=== PATIENT | female | born 1955 | race Caucasian/White ===

== ENCOUNTER → 2016-09-24 | Outpatient (CLI) | payer MEDICARE, OTHER ==
--- NOTE | 2016-09-24 13:05 | RAD ---
Indication fractured ribs. Assess for potential pneumonia. The heart size and pulmonary vessels are normal. The lungs are clear of acute infiltrates. There is no pleural fluid. There is no pneumothorax. Breast implants are noted. (Frontal and lateral views of the chest were obtained. No prior imaging of the chest is available). There are probable background changes of emphysema and/or fibrosis IMPRESSION: No acute or focal process in the chest. Probable chronic changes as outlined above
--- NOTE | 2016-09-24 13:19 | RAD ---
INDICATION: Osteoporosis screening. COMPARISON: None. TECHNIQUE: Bone densitometry was performed through the lumbar spine and proximal femur. FINDINGS: Lumbar Spine: L1-4 BMD: 0.78 T-Score: -1.7 Femoral Neck Right: BMD: 0.68 T-Score: -2.7 IMPRESSION: 1. Lumbar spine falls within the osteopenic range. 2. Right femoral neck falls within the osteoporotic range.
--- NOTE | 2016-09-24 13:53 | RAD ---
EXAM: MAMMO [facility] SCREENING BILATERAL HISTORY: Routine Screening. COMPARISON: None available Standard mammographic views are obtained of the bilateral breasts. Additionally three-dimensional tomographic images obtained and implant displaced views. This study was interpreted with the benefit of Computerized Aided Detection (CAD). FINDINGS: The breast parenchyma shows scattered fibroglandular densities. Breast parenchyma level II. There is bilateral breast implants identified with calcification of the capsule. There is some irregularity of the right breast implant with some high density extracapsular material seen. IMPRESSION: No definite suspicious mass is identified. There are bilateral breast implants with calcified capsule as well as some high density material suspected within an extracapsular location on the right which raises the concern for implant leakage. BI-RADS CATEGORY: 2 BENIGN FINDING RECOMMENDED FOLLOW-UP: 12M 12 MONTH FOLLOW-UP PQRS compliance statement: Patient information was entered into a reminder system with a target due date for the next mammogram. Mammography is a sensitive method for finding small breast cancers, but it does not detect them all and is not a substitute for careful clinical examination. A negative mammogram does not negate a clinically suspicious finding and should not result in delay in biopsying a clinically suspicious abnormality. "Our facility is accredited by the [employer] Mammography Program."
== END | disposition home or self-care (01) ==
LOC: MAMMO 12:15
PROVIDERS: ATTEND Family Medicine
DX: Z12.31 Encounter for screening mammogram for malignant neoplasm of breast (principal); M81.0 Age-related osteoporosis without current pathological fracture; R09.89 Other specified symptoms and signs involving the circulatory and respiratory systems; Z13.820 Encounter for screening for osteoporosis
CPT/HCPCS: 71020; 77063; 77080; G0202; 77067